=== PATIENT | male | born 1980 | race Caucasian/White ===

== ENCOUNTER 2018-03-13 00:21 | Emergency (ER) | payer SELFPAY ==
[2018-03-13 00:48] VITALS: BP 154/96; TEMP 98.6; O2SAT 95
--- NOTE | 2018-03-13 01:02 | ED.PDOC ---
History of Present Illness - General Chief Complaint: Skin/Abrasion/Tear Stated Complaint: Parasites in scalp Time Seen by Provider: 03/13/18 01:00 Source: patient Exam Limitations: no limitations - History of Present Illness Initial Comments: the patient is a 37-year-old male presenting to the emergency room secondary to areas of itching on the scalp that have been present for a long period of time. He reports pulling out the roots of hairs. He feels like there is bugs crawling on his hair. he does wear THAT are sweaty a lot of the time. He has had pus draining from the areas. There are multiple ball patchy areas that do have some scarring present were he has picked at them. These have obviously been present for a very long time. He does have one area posteriorly that does have some mild active pus drainage. Timing/Duration: unsure Severity: mild Improving Factors: nothing Worsening Factors: nothing Associated Symptoms: denies symptoms Allergies/Adverse Reactions: Allergies NO KNOWN ALLERGY Allergy (Verified 03/13/18 00:48) Home Medications: Ambulatory Orders Sulfa/Trimeth 800/160 (Ds) Tab [Bactrim DS Tab] 1 ea PO BID #20 tab 03/13/18 Review of Systems - Review of Systems Constitutional: States: no symptoms reported EENTM: States: no symptoms reported Respiratory: States: no symptoms reported Cardiology: States: no symptoms reported Gastrointestinal/Abdominal: States: no symptoms reported Genitourinary: States: no symptoms reported Musculoskeletal: States: no symptoms reported Skin: States: see HPI Neurological: States: anxiety Endocrine: States: no symptoms reported All other Systems: No Change from Baseline Family Medical History - Family History Father Living Status: Still Living Hx Cardiac Disease: Yes - [place] Mother Living Status: Cause of : Pneumonia Physical Exam - Physical Exam General Appearance: Alert, Anxious, No apparent distress Eye Exam: bilateral normal Ears, Nose, Throat: hearing grossly normal, normal ENT inspection, normal pharynx Neck: full range of motion, supple, normal inspection Respiratory: no respiratory distress, no accessory muscle use Cardiovascular/Chest: normal peripheral pulses, no edema, tachycardia Peripheral Pulses: radial,right: 2+, radial,left: 2+, dorsalis pedis,right: 2+, dorsalis pedis,left: 2+ Rectal Exam: deferred Back Exam: normal inspection Extremity: normal range of motion, non-tender, normal inspection, no pedal edema , normal capillary refill Neurologic: cycle counter II-XII nml as tested, alert, normal mood/affect, oriented x 3 Skin Exam: other - see history of present illness Comments: Vital Signs - 24 hr 03/13/18 00:46 Temperature 98.6 F Pulse Rate [ 120 H monitor] Respiratory 18 Rate Blood Pressure 154/96 [Right Arm] O2 Sat by Pulse 95 Oximetry Progress - Progress Progress: 03/13/18 01:03 the patient is a 37-year-old male presenting to emergency room after a very extended period of time of scalp itching and a feeling of bugs crawling on his scalp. There are no bugs in his hair. He does have multiple areas of patchy balding that he has picked. He additionally does have an area of folliculitis posteriorly. For this the patient will be placed on Bactrim twice daily for the next 10 days. After this he needs to establish himself with a primary care doctor to do scrapings of the areas and see if he does have a fungal infection in these areas keeping them inflamed. if that is the case then a more extended course of an antifungal would be warranted subsequently. Most importantly he needs to stop picking at the areas. The sensation of bugs crawling on one's person is known as formication and can be made worse or created entirely by certain forms of substance abuse, such as methamphetamine, which he should obviously avoid. He needs to do himself well hydrated. er warnings were given. Departure - Departure Clinical Impression: Folliculitis barbae traumatica, Formication Disposition: Discharge to Home or Self Care Condition: Fair Departure Forms: ED Discharge - Pt. Copy, Patient Portal Self Enrollment Instructions: Folliculitis (DC) Diet: regular diet Activity: increase activity as tolerated Prescriptions: Sulfa/Trimeth 800/160 (Ds) Tab [Bactrim DS Tab] 1 ea PO BID #20 tab Home Medications: Ambulatory Orders Sulfa/Trimeth 800/160 (Ds) Tab [Bactrim DS Tab] 1 ea PO BID #20 tab 03/13/18 Additional Instructions: the patient is a 37-year-old male presenting to emergency room after a very extended period of time of scalp itching and a feeling of bugs crawling on his scalp. There are no bugs in his hair. He does have multiple areas of patchy balding that he has picked. He additionally does have an area of folliculitis posteriorly. For this the patient will be placed on Bactrim twice daily for the next 10 days. After this he needs to establish himself with a primary care doctor to do scrapings of the areas and see if he does have a fungal infection in these areas keeping them inflamed. if that is the case then a more extended course of an antifungal would be warranted subsequently. Most importantly he needs to stop picking at the areas. The sensation of bugs crawling on one's person is known as formication and can be made worse or created entirely by certain forms of substance abuse, such as methamphetamine, which he should obviously avoid. He needs to do himself well hydrated. er warnings were given.
== END 2018-03-13 01:23 | disposition home or self-care (01) ==
LOC: ER 00:21
DX: L73.8 Other specified follicular disorders (principal); R20.2 Paresthesia of skin; Z88.2 Allergy status to sulfonamides

== ENCOUNTER 2018-05-16 13:56 | Emergency (ER) | payer SELFPAY ==
[2018-05-16 14:18] VITALS: TEMP 97
[2018-05-16] MEDS ORDERED: KETOROLAC TROMETHAMINE INJ 60 MG/2 ML VIAL IM ONE (14:32)
--- NOTE | 2018-05-16 14:48 | ED.PDOC ---
History of Present Illness - General Chief Complaint: Skin/Abrasion/Tear Stated Complaint: Non-healing skin irritations Time Seen by Provider: 05/16/18 14:32 Source: patient Exam Limitations: no limitations - History of Present Illness Initial Comments: PT C/O 1 YEAR HX OF SKIN LESIONS WHICH ARE NON HEALING AND PRIMARILY INVOLVE UPPER EXT AND SCALP. MORE RECENT HAS DEVELOPED L SHOULDER PAIN WITHOUT HX OF TRAUMA. INCREASES WITH MOVEMENT, IMPROVES WITH REST. MILD IN INTENSITY. HAS TRIED TOPICAL ABX AND ANTI-FUNGALS ON RASH WITHOUT SUCCESS. Severity: mild Allergies/Adverse Reactions: Allergies NO KNOWN ALLERGY Allergy (Verified 05/16/18 14:18) Home Medications: Ambulatory Orders Cephalexin Monohydrate [Keflex] 500 mg PO TID #30 cap 05/16/18 Indomethacin 50 mg PO TID PRN #14 cap 05/16/18 Review of Systems - Review of Systems Constitutional: Denies: chills, fever EENTM: States: no symptoms reported Skin: States: rash, other - LESIONS TO UE'S Neurological: States: no symptoms reported Past Medical History (General) - Patient Medical History Hx Stroke: No Hx Asthma: No Hx Congestive Heart Failure: No Hx Hypertension: No Hx Diabetes: No Hx Gastroesophageal Reflux: No Hx Renal Disease: No - Vaccination History Hx Tetanus, Diphtheria Vaccination: Yes Hx Influenza Vaccination: No Hx Pneumococcal Vaccination: No - Social History Hx Tobacco Use: Yes Hx Alcohol Use: Yes Hx Substance Use: Yes Family Medical History - Family History Father Living Status: Still Living Hx Cardiac Disease: Yes - [place] Mother Living Status: Cause of : Pneumonia Physical Exam - Physical Exam General Appearance: Alert, No apparent distress Eye Exam: bilateral normal Ears, Nose, Throat: hearing grossly normal, normal ENT inspection, other - POST SCALP SHOWS 2 AREAS OF ALLOPECIA WITHOUT EVIDENCE OF SECONDARY INFECTION. Neck: non-tender, full range of motion Respiratory: lungs clear, normal breath sounds Cardiovascular/Chest: regular rate, rhythm, no murmur Gastrointestinal/Abdominal: normal bowel sounds, non tender, soft Back Exam: normal inspection, no CVA tenderness Extremity: other - MILD TTP L AXILLA BUT NO LYMPHADENOPATHY, MILD DIFFUSE TTP L SHOULDER NO BONY ABN/DEFORMITY. NVI Neurologic: no motor/sensory deficits, alert Skin Exam: normal color, warm/dry, other - SEVERAL AREAS OF FOLLICULITIS OF UE' S. Lymphatic: no adenopathy Progress - Progress Progress: 05/16/18 15:24 BETTER AFTER TORADOL - EKG/XRAY/CT XRAY: SHOULDER, NEG Departure - Departure Clinical Impression: Folliculitis, Alopecia Time of Disposition: 15:26 Disposition: Discharge to Home or Self Care Condition: Excellent Departure Forms: ED Discharge - Pt. Copy, Patient Portal Self Enrollment Instructions: Muscle and Bone Pain (DC), Hair Loss in Men and Women Prescriptions: Cephalexin Monohydrate [Keflex] 500 mg PO TID #30 cap Indomethacin 50 mg PO TID PRN #14 cap PRN Reason: Pain Home Medications: Ambulatory Orders Cephalexin Monohydrate [Keflex] 500 mg PO TID #30 cap 05/16/18 Indomethacin 50 mg PO TID PRN #14 cap 05/16/18
--- NOTE | 2018-05-16 15:02 | RAD ---
PROCEDURE: XR Left Shoulder Complete, three Views CLINICAL INDICATION: The patient is 37 years old and is Male; PAIN IN L SHOULDER TECHNIQUE: Three views of the left shoulder. COMPARISON: No relevant prior studies available. FINDINGS: BONES/JOINTS: Unremarkable.No acute fracture noted. No dislocation. Joint spaces maintained. SOFT TISSUES: Unremarkable.No radiopaque foreign body. No significant soft tissue swelling noted. IMPRESSION: Normal left shoulder x-rays. Electronically signed by: Arnaldo Butler MD 05/16/2018 3:01 PM CDT
[2018-05-16 16:01] VITALS: BP 104/62; O2SAT 98
== END 2018-05-16 15:30 | disposition home or self-care (01) ==
LOC: ER 13:56
DX: L73.9 Follicular disorder, unspecified (principal); L65.9 Nonscarring hair loss, unspecified; Z87.891 Personal history of nicotine dependence
CPT/HCPCS: 73030; J1885